=== PATIENT | male | born 1935 | race Caucasian/White ===

== ENCOUNTER 2020-03-26 09:24 | Inpatient (IN) | payer MEDICARE, OTHER, SELFPAY ==
[2020-03-26] VITALS (15 sets, daily range): BP systolic 127–151; BP diastolic 67–94; PULSE 72–107; RESP 16–25; TEMP 35.2–36.5; O2SAT 89–100
--- NOTE | ~2020-03-26 | CT_ITS ---
EXAMINATION: CTA chest PE protocol DATE: 03/27/2020 10:55 INDICATION: Shortness of breath. TECHNIQUE: Computed tomography angiography (CTA) of the chest was performed with 100 mL Omnipaque-350 intravenous contrast timed to evaluate the pulmonary arteries. Coronal maximum intensity projection 3D-reconstructions were created by the technologist. Automated exposure control and iterative reconst ruction technique were employed. The dose-length product was 243.82 mGy-cm. COMPARISON: Chest 2 views 03/26/2020 FINDINGS: There is moderate emphysema. There are peripheral reticular opacities in the lungs involvin g all lobes with honeycombing in the inferior lungs. Calcified bilateral lung nodules and calcified r ight hilar lymph nodes are consistent with old granulomatous disease. No pleural effusion. The heart size is normal. There are coronary artery calcifications. No pericardial effusion. There is no pulmon henok embolus. There are changes of cholecystectomy. There is thoracic kyphosis and moderate spondylosi s. There is severe cervical spondylosis. IMPRESSION: 1. No pulmonary embolus. Mild sensitivity is mildly decreased by motion artifact. 2. Moderate emphysema and chronic interstitial lung disease in a pattern of usual interstitial pneumo steve (UIP). Reviewed, dictated and finalized at location A. IMPRESSION: 1. No pulmonary embolus. Mild sensitivity is mildly decreased by motion artifac t. 2. Moderate emphysema and chronic interstitial lung disease in a pattern of usu al interstitial pneumonia (UIP).
--- NOTE | ~2020-03-26 | XR_ITS ---
EXAMINATION: XR chest 2V DATE: 03/26/2020 09:57 INDICATION: Shortness of breath. Dizziness. TECHNIQUE: Frontal and lateral views of the chest were obtained. COMPARISON: None. FINDINGS: There is mild scarring at the lung apices. The lungs are hyperexpanded with lucencies and a rchitectural distortion, consistent with emphysema. There is mild atelectasis versus scarring in the lower lung zones. No pleural effusion or pneumothorax. The heart size is normal. There are surgical c lips around the gastroesophageal junction and in the abdomen. IMPRESSION: 1. Mild atelectasis versus scarring in the lower lung zones and mild scarring at the lung apices. 2. Emphysema. Reviewed, dictated and finalized at location A. IMPRESSION: 1. Mild atelectasis versus scarring in the lower lung zones and mild scarring a t the lung apices. 2. Emphysema.
--- NOTE | 2020-03-26 09:27 | ECG_ITS ---
Measurements Intervals [place] Rate: 96 P: 57 DC: 157 QRS: 70 QRSD: 101 T: -21 QT: 341 QTc: 432 Interpretive Statements SINUS RHYTHM ST-T WAVE ABNORMALITY IN ANT/INF LEADS- CONSIDER ISCHEMIA BASELINE ARTIFACT- I, III, AVR, AVL, AVF, V1-V2 ABNORMAL ECG Electronically Signed On 03-26-2020 9:57:40 CDT by Virgilio Hanson D.O.
--- NOTE | 2020-03-26 09:33 | ED.SOB ---
HPI - SOB/Dyspnea General Chief Complaint: Shortness of Breath/Dyspnea Stated Complaint: sob, dizzy Time Seen by Provider: 03/26/20 09:26 History of Present Illness HPI Narrative: 84 yo male w/ h/o HTN presents c/o SOB. He says that he has been short of breath for quite some time. It has been getting progressively worse, although with no sudden change. He now has difficulty just getting around inside his home. He has no h/o COPD, although he did smoke for many years. No CP, fever, sick exposures. Related Data Home Medications Medication Instructions Recorded Confirmed amlodipine 5 mg PO DAILY 03/26/20 03/26/20 Allergies Allergy/AdvReac Type Severity Reaction Status Date / Time No Known Allergies Allergy Verified 03/26/20 09:39 Review of Systems Review of Systems: All systems reviewed & are unremarkable except as noted in HPI and below Constitutional: Constitutional: Denies fever(s) ENT: Denies dizziness Cardiovascular: Cardiovascular: Denies chest pain Respiratory: Respiratory: Reports cough and Reports dyspnea PMFSH Past Medical History Medical History COPD (chronic obstructive pulmonary disease) History of gastrectomy Due 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 He has an adopted daughter. She is a durable power health care attorney for healthcare. The patient tells me that he wants to be a DNR. He is also retired from [employer] and retired from the in 1975. Smoking status: Former smoker Tobacco type: cigarettes Second hand tobacco smoke exposure: No Alcohol intake: former Substance use: never Gender identity (if verbalized by the patient): Male Spiritual care concerns: No Exam Const: General: no acute distress and alert Orientation/consciousness: patient oriented x3 HENMT: Head: normal to inspection Neck: Neck: normal visual inspection and no lymphadenopathy Chest: Chest palpation & inspection: no tenderness Resp: Effort & Inspection: normal respiratory effort Auscultation: wheezes and diminished lung sounds Cardio: Jugular venous distension: no JVD Rate: regular rate Rhythm: regular rhythm Heart sounds: no murmurs GI: Inspection: non-distended GI Palp: Yes Soft to palpation and No Tenderness to palpation present (GI) Skin: General skin exam: normal color Neuro: General: patient oriented x3 and moves all extremities Speech: normal speech Extrem: General: no edema Psych: Appearance: well kempt Affect: normal affect Course Vital Signs Vital signs: Vital Signs Temperature 36.5 C 03/26/20 09:30 Pulse Rate 92 03/26/20 09:30 Respiratory Rate 25 H 03/26/20 09:30 Blood Pressure 151/94 H 03/26/20 09:30 Pulse Oximetry 89 L 03/26/20 09:30 Temperature 36.8 C 03/28/20 14:00 Pulse Rate 77 03/28/20 14:00 Respiratory Rate 20 03/28/20 14:00 Blood Pressure 121/65 03/28/20 14:00 Pulse Oximetry 93 03/28/20 15:30 MDM - SOB/Dyspnea Differential Diagnosis Differential diagnosis: Likely acute exacerbation of chronic obstructive airways disease, congestive heart failure and community acquired pneumonia Lab Data Attestation: I reviewed the patient's lab results. Result diagrams: 03/28/20 05:21 03/28/20 05:21 Labs: Lab Results 03/26/20
--- NOTE | 2020-03-26 09:42 | PC.NURSE ---
Pt placed on 2 L NC O2, sat from 89% on room air to 100%, titrated O2 via NC to 1 L.
--- NOTE | 2020-03-26 09:43 | PC.NURSE ---
Pt to XRAY via stretcher on tele monitor.
[2020-03-26 09:49] LABS: Basophils Absolute Auto 0.1 K/mm3 (0.0-0.1); Basophils Percent Auto 0.7 % (0.2-1.2); Eosinophils Absolute Auto 0.1 K/mm3 (0-0.3); Eosinophils Percent Auto 1.5 % (0-4.4); Hematocrit 38.2 % (42.0-52.0); Hemoglobin 12.2 g/dL (14.0-18.0); Immature Granulocyte Absolute 0.03 K/mm3 (0.00-0.031); Immature Granulocyte Percent A 0.4 % (0-0.5); Lymphocytes Absolute Auto 2.01 K/mm3 (0.9-3.2); Lymphocytes Percent Auto 23.7 % (18.3-44.2); Mean Corpuscular HGB Conc 31.9 g/dl (32-36); Mean Corpuscular Hemoglobin 26.5 pg (26-34); Mean Platelet Volume 8.9 fl (7.4-10.4); Monocytes Absolute Auto 0.8 K/mm3 (0.1-0.6); Monocytes Percent Auto 8.8 % (2.6-8.5); Neutrophils Absolute Auto 5.5 K/mm3 (1.3-6.7); Neutrophils Percent Auto 64.9 % (45.5-73.1); Platelet Count Result 343 k/mm3 (150-375); Red Cell Distribution Width 17.8 % (11.5-14.5); White Blood Count 8.5 K/mm3 (4.5-10.0)
[2020-03-26 10:00] LABS: Alanine Aminotransferase 15 U/L (4-50); Albumin Level 4.5 g/dL (3.5-5.1); Alkaline Phosphatase 86 U/L (38-126); Aspartate Amino Transferase 28 U/L (17-59); Bilirubin,Total 0.4 mg/dL (0.2-1.3); Blood Urea Nitrogen 28 mg/dL (9-20); Calcium 9.2 mg/dL (8.4-10.2); Carbon Dioxide 22 mmol/L (22-30); Chloride 104 mmol/L (98-107); Estimated CRCL calculation 56 ml/min; Estimated Glomerular Filt Rate > 60; Glucose 120 mg/dL (75-110); Potassium 4.4 mmol/L (3.4-5.0); Sodium 135 mmol/L (137-145)
[2020-03-26 10:09] LABS: INR 1.1; Prothrombin Time 13.6 Seconds (11.1-14.7)
[2020-03-26 10:10] LABS: Partial Thromboplastin Time 28.5 SECONDS (22.3-36.8)
[2020-03-26 10:14] LABS: NT Pro B Type Natriuretic Pept 2700 PG/ML (5-100); Troponin I < 0.012 ng/mL (0.000-0.034)
[2020-03-26 10:17] LABS: Base Excess ABG -3.9 mEq/l (+/-2.0); HCO3 ABG 18.9 mEq/l (22.0-26.0); Oxygen Saturation ABG 94.5 % (95.0-100.0); PCO2 ABG 27.9 mmHg (35.0-45.0); PO2 ABG 67.2 mmHg (80.0-100.0); Total Hemoglobin 12.5 g/dL (12.0-18.0); pH ABG 7.448 (7.350-7.450)
[2020-03-26 10:18] LABS: Alveolar/Arterial O2 Gradient 49.1 mmHg; Device ROOM AIR; Fractional Inspired Oxygen 21 %; Site Drawn LEFT BRACHIAL
[2020-03-26] MEDS: IPRATROPIUM BR 0.02% INH SOLN 0.5 MG/2.5 ML VIAL INHALATION ×3 (10:25→20:12)
[2020-03-26] MEDS: ALBUTEROL SULFATE NEB 2.5 MG/0.5 ML INH 5 MG INHALATION ×3 (10:26→20:12)
--- NOTE | 2020-03-26 10:34 | PC.NURSE ---
Pt taken off O2 (100% on 1 L NC), pt 100% on room air.
--- NOTE | 2020-03-26 18:24 | PM.IMHP ---
H&P: HPI History of Present Illness Chief complaint: COPD exacerbation Narrative: Ramírez Helm is a 84 year old male who has no prior history of having COPD or emphysema. The patient did smoke for many years. Patient stated that he has been short of breath for quite a while. I asked him to the elaborate on being short of breath for while. He said probably since last year. He said it is mostly with exertion. He stated when he walks approximately block he has to stop and recover. He said it takes him a short period of time to recover. He does not have any home oxygen. He does not have any fever chills or any cough. The patient does not use any inhalers and is only on blood pressure medication. Given nebulizer treatment in the emergency room. Mild atelectasis versus scarring in the lower lung zones and mild scarring at the lung apices. Emphysema. Date of service 03/26/2020 The patient lives home alone and has been reminiscing about being back in [place]. He has been having flashbacks. His neighbor is a nurse who recommended that the patient needed to be checked out. Review of Systems Review of Systems: All systems reviewed & are unremarkable except as noted in HPI and below Constitutional: Constitutional: Reports as per HPI and Reports no additional constitutional complaints Eyes: Eyes: Reports as per HPI and Reports no additional eye complaints ENT: Reports system reviewed and no additional complaints, except as documented and Reports Normal hearing present Cardiovascular: Cardiovascular: Reports no additional cardiovascular complaints Respiratory: Respiratory: Reports no additional respiratory complaints and Reports no additional respiratory complaints Gastrointestinal: Gastrointestinal: Reports as per HPI and Reports no additional gastrointestinal complaints Musculoskeletal: Musculoskeletal: Reports no additional musculoskeletal complaints Integumentary/Breasts: Skin/Breast: Reports system reviewed and no additional complaints, except as docu and Reports as per HPI Neurologic: Reports system reviewed and no additional complaints, except as documented, Reports as per HPI and Reports Normal hearing present Psychiatric: Psychiatric: Reports no additional psychiatric complaints and Reports as per HPI Endocrine: Endocrine: Reports no additional endocrine complaints Hematologic/Lymphatic: Hematologic/Lymphatic: Reports no additional hematologic/lymphatic complaints Allergic/Immunologic: Allergic/Immunologic: Reports no additional allergic/immunologic complaints [facility] Past Medical History Medical History (Updated 03/26/20 @ 18:28 by Wilma Todd NP) 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 He has an adopted daughter. She is a durable power defense attorney for healthcare. The patient tells me that he wants to be a DNR. He is also retired from [employer] and retired from the in 1975. Smoking status: Former smoker Tobacco type: cigarettes Second hand tobacco smoke exposure: No Alcohol intake: former Substance use: never Gender identity (if verbalized by the patient): Male Spiritual care concerns: No Meds Home Medications and Allergies Home Medications Medication Instructions Recorded Confirmed Type amlodipine 5 mg PO DAILY 03/26/20 03/26/20 History Allergies Allergy/AdvReac Type Severity Reaction Status Date / Time No Known Allergies Allergy Verified
[2020-03-26] MEDS: methylPREDNISolone SOD SUCC 125 MG VIAL 60 MG IV PUSH (22:08)
[2020-03-26] MEDS: AMLODIPINE BESYLATE 5 MG TABLET PO (22:08)
[2020-03-26] MEDS: MELATONIN 3 MG TABLET PO (22:08)
[2020-03-27] VITALS (17 sets, daily range): BP systolic 115–124; BP diastolic 53–75; PULSE 76–116; RESP 16–24; TEMP 36.4–37.1; O2SAT 90–99
--- NOTE | 2020-03-27 | ECHO_ITS ---
Patient Info Name: Ramírez Helm Age: 84 years : 1935 Gender: Male Ht: 73 in Wt: 151 lbs BSA: 1.87 m2 HR: 93 bpm BP: 143 / 76 mmHg Heart Rhythm: Sinus Rhythm Technical Quality: Good Exam Date: 03/27/2020 11:27 AM Exam Location: [facility] Pulmonary Exam Room: [place] Patient Status: Inpatient Admit Date: 03/27/2020 Staff Ordering Physician: Wilma Todd NP Hair Colorist: Cassie Bates RDCS Attending Provider: Chung Friedman PA-C Referring Physician: Peyton WALLACE; Exam Type: CA echo doppler color flow Study Info Indications - sob/rodriguez Complete two-dimensional, color flow and Doppler transthoracic echocardiogram is performed. Summary 1. Normal global left ventricular systolic function with no focal wall motion abnormalities. Grade 1 diastolic dysfunction is present. Ejection fraction 65-70%. Mild concentric LVH with normal size. Flattening of the interventricular septum during systole and diastole suggesting right ventricular volume and pressure overload. 2. Right ventricular chamber dimension is moderately enlarged with severe global hypokinesis.. 3. Left atrial chamber dimension is mildly enlarged. 4. There is mild to moderate tricuspid valve regurgitation. 5. Severe pulmonary hypertension, estimated pulmonary arterial systolic pressure is 90 mmHg. 6. Dilated inferior vena cava with <50% collapse upon inspiration consistent with significantly elevated right atrial pressure, 10 mmHg. An echo density was noted in the inferior vena cava which I suspect is artifactual although a mass cannot be completely excluded. 7. Normal sinus rhythm. Left Ventricle Left ventricular chamber dimension is normal. Left ventricular systolic function is normal, estimated at 65-70%. There is mildly increased left ventricular wall thickness. Left ventricular septal wall motion is normal. The left ventricular diastolic function is grade I diastolic dysfunction. Normal global left ventricular systolic function with no focal wall motion abnormalities. Grade 1 diastolic dysfunction is present. Ejection fraction 65-70%. Mild concentric LVH with normal size. Flattening of the interventricular septum during systole and diastole suggesting right ventricular volume and pressure overload. Right Ventricle Right ventricular chamber dimension is moderately enlarged with severe global hypokinesis.. Right ventricular systolic function is reduced. Left Atria Left atrial chamber dimension is mildly enlarged. Right Atria Right atrial chamber dimension is normal. Aortic Valve The aortic valve is trileaflet. There is no aortic valve sclerosis. There is no aortic valve stenosis. There is no aortic valve regurgitation. Pulmonic Valve The pulmonic valve is normal. There is no pulmonic valve stenosis. There is trace pulmonic regurgitation. Mitral Valve The mitral valve has normal leaflets. There is no mitral valve stenosis. There is trace mitral valve regurgitation. Tricuspid Valve The tricuspid valve leaflets are normal. There is no significant tricuspid valve stenosis. There is mild to moderate tricuspid valve regurgitation. Severe pulmonary hypertension, estimated pulmonary arterial systolic pressure is 90 mmHg. Pericardium/Pleural The pericardium appears normal. There is no pericardial effusion. Inferior Vena Cava Dilated inferior vena cava with <50% collapse upon inspiration consistent with significantly elevated right atrial pressure, 10 mmHg. An echo density
[2020-03-27] MEDS: IPRATROPIUM BR 0.02% INH SOLN 0.5 MG/2.5 ML VIAL INHALATION ×4 (02:02→19:42)
[2020-03-27] MEDS: ALBUTEROL SULFATE NEB 2.5 MG/0.5 ML INH 5 MG INHALATION ×4 (02:02→19:42)
[2020-03-27] MEDS: methylPREDNISolone SOD SUCC 125 MG VIAL 60 MG IV PUSH ×2 (05:41→21:36)
[2020-03-27 06:30] LABS: Albumin Level 4.4 g/dL (3.5-5.1); Alkaline Phosphatase 80 U/L (38-126); Aspartate Amino Transferase 26 U/L (17-59); Bilirubin,Total 0.4 mg/dL (0.2-1.3); Blood Urea Nitrogen 20 mg/dL (9-20); Calcium 9.4 mg/dL (8.4-10.2); Carbon Dioxide 21 mmol/L (22-30); Chloride 103 mmol/L (98-107); Estimated CRCL calculation 59 ml/min; Estimated Glomerular Filt Rate > 60; Glucose 175 mg/dL (75-110); Potassium 4.2 mmol/L (3.4-5.0); Sodium 136 mmol/L (137-145)
[2020-03-27 06:36] LABS: Alanine Aminotransferase 20 U/L (4-50)
[2020-03-27 07:16] LABS: Thyroid Stimulating Hormone Reflex 0.296 uIU/mL (0.465-4.68)
[2020-03-27] MEDS: AMLODIPINE BESYLATE 5 MG TABLET PO (08:49)
[2020-03-27 08:57] LABS: Free T4 Free Thyroxine Reflex 1.28 ng/dL (0.78-2.19)
[2020-03-27 10:08] LABS: Total Triiodothyronine (T3) 2.25 NG/ML (0.97-1.69)
--- NOTE | 2020-03-27 10:40 | PM.IMPN ---
Progress Note: A&P Assessment and Plan (1) Emphysema lung: Code(s): J43.9 - Emphysema, unspecified Status: Acute Assessment and Plan: Patient has never been diagnosed in the past. Noted on CXR during this stay. He has significant smoking history; former smoker. Clinically improved today. Breathing on RA Continue with nebulizer treatments Taper IV solumedrol frequency today; consider prednisone burst at discharge Will need follow up with PCP to potentially be referred to [facility]; he will likely need PFT for further evaluation PE less likely but will continue with CTA chest to rule out PE Possibly cardiac component as well; will proceed with Echo today as well Monitor overnight (2) PTSD (post-traumatic stress disorder): Code(s): F43.10 - Post-traumatic stress disorder, unspecified Status: Chronic Assessment and Plan: He is not currently on any medication at this time and does not want to be on any at this time. Follow up with PCP (3) HTN (hypertension) with goal to be determined: Code(s): I10 - Essential (primary) hypertension Status: Chronic Assessment and Plan: BP 120s sys this morning Continue with home amlodipine Monitor (4) Cataract: Code(s): H26.9 - Unspecified cataract Status: Acute Assessment and Plan: The patient is to have the left eye cataract removed sometime this month. Subjective Date/time seen: 03/27/20 10:40 Interval history: Patient is a 84 yo M with history of HTN, PTSD, and signficant tobacco use who is here for evaluation of SOB that has progressively worsened over the past months/year. Patient states he feels fine today. He thinks his breathing has improved. He is primarily SOB when exerting himself. He has no other complaints at the moment. Denies f/c/s, headaches, dizziness, lightheadedness, cp/palpitations, n/v/d/c, abd pain, changes in BMs, dysuria, hematuria, cloudy urine, calf pain/swelling. Review of Systems Review of Systems: All systems reviewed & are unremarkable except as noted in HPI and below Exam Narrative: Exam Narrative: Patient resting comfortably in bed, sitting up at time of visit Const: General: cooperative, comfortable, no acute distress, well developed, alert, awake and Physically active Nutritional Appearance: thin Orientation/consciousness: patient oriented x3 HENMT: Head: normocephalic and atraumatic General nose exam: Normal nares present Face and sinus: face symmetric Mouth: Yes moist mucous membranes Eyes: General: appearance normal, both eyes and all related structures EOM: EOMs intact bilaterally Neck: Neck: trachea midline and supple Resp: Effort & Inspection: normal respiratory effort Auscultation: clear to auscultation bilaterally and diminished lung sounds diffuse Cardio: Rate: tachycardic Rhythm: regular rhythm Heart sounds: no murmurs GI: Inspection: non-distended GI Palp: No abdominal tenderness and Yes Soft to palpation Auscultation: normal bowel sounds Skin: General skin exam: normal color and no rashes or lesions noted Neuro: General: patient oriented x3, moves all extremities and no focal motor deficits Speech: normal speech Extrem: Right lower extremity: no edema Left lower extremity: no edema Other: NTTP b/l calves Psych: Mental Status: mental status grossly normal Affect: normal affect Objective Data Vital Signs Vital Signs: Last Vital Signs Temp 97.5 F L 03/27/20 06:00 Pulse 97 03/27/20 08:10 Resp 20 03/27/20 08:10 BP 124/75 03/27/20 06:00 Pulse Ox 98 03/27/20 07:59 Intake/Output Intake/Output: Intake & Output 03/24/20 03/25/20 03/26/20 03/27/20 23:59 23:59 23:59 23:59 Intake Total 200 240 Output Total 200 650 Balance 0 -410 Meds/Results Medications: Ac
[2020-03-27] MEDS: MELATONIN 3 MG TABLET PO (21:31)
[2020-03-28] VITALS (16 sets, daily range): BP systolic 113–121; BP diastolic 63–65; PULSE 75–106; RESP 18–20; TEMP 36.7–36.8; O2SAT 24–97
[2020-03-28] MEDS: ALBUTEROL SULFATE NEB 2.5 MG/0.5 ML INH 5 MG INHALATION ×3 (02:34→13:28)
[2020-03-28] MEDS: IPRATROPIUM BR 0.02% INH SOLN 0.5 MG/2.5 ML VIAL INHALATION ×3 (02:34→13:28)
[2020-03-28 05:34] LABS: Hematocrit 35.2 % (42.0-52.0); Hemoglobin 11.3 g/dL (14.0-18.0); Mean Corpuscular HGB Conc 32.1 g/dl (32-36); Mean Corpuscular Hemoglobin 26.7 pg (26-34); Mean Corpuscular Volume 83.2 fl (80-100); Platelet Count Result 311 k/mm3 (150-375); Red Blood Count 4.23 M/mm3 (4.6-6.20); Red Cell Distribution Width 17.8 % (11.5-14.5); White Blood Count 14.5 K/mm3 (4.5-10.0)
[2020-03-28 05:51] LABS: Blood Urea Nitrogen 31 mg/dL (9-20); Calcium 9.5 mg/dL (8.4-10.2); Carbon Dioxide 22 mmol/L (22-30); Chloride 103 mmol/L (98-107); Estimated CRCL calculation 53 ml/min; Estimated Glomerular Filt Rate > 60; Glucose 153 mg/dL (75-110); Magnesium 2.2 mg/dL (1.6-2.3); Potassium 4.7 mmol/L (3.4-5.0); Sodium 136 mmol/L (137-145)
[2020-03-28] MEDS: predniSONE 20 MG TABLET 40 MG PO (09:08)
--- NOTE | 2020-03-28 14:22 | PM.IMPN ---
Progress Note: A&P Assessment and Plan (1) Severe pulmonary arterial systolic hypertension: Code(s): I27.21 - Secondary pulmonary arterial hypertension Status: Acute Assessment and Plan: Noted on Echo during stay; 90 mmHg pressure. CTA chest showed no PE but showed moderate emphysema and chronic interstitial lung disease in a pattern of usual interstitial pneumonia (UIP). Discussed with Dr. Humphries; appreciate recommendations Will await further rec from Dr. Humphries Patient currently asymptomatic; on RA Monitor Will need further f/u as an outpatient, as well (2) Emphysema lung: Code(s): J43.9 - Emphysema, unspecified Status: Acute Assessment and Plan: Patient has never been diagnosed in the past. Noted on CXR and CTA chest during this stay. He has significant smoking history; former smoker. Clinically improved again today. Breathing on RA. Lung exam unremarkable other than decreased breathe sounds Continue with nebulizer treatments Switched from IV Solumedrol to PO prednisone 40 mg; likely discharge on burst Dr. Humphries consulted and appreciate recommendations; he will likely need PFT for further evaluation (3) PTSD (post-traumatic stress disorder): Code(s): F43.10 - Post-traumatic stress disorder, unspecified Status: Chronic Assessment and Plan: He is not currently on any medication at this time and does not want to be on any at this time. Follow up with PCP (4) HTN (hypertension) with goal to be determined: Code(s): I10 - Essential (primary) hypertension Status: Chronic Assessment and Plan: BP 110s sys this morning Continue with home amlodipine Monitor (5) Cataract: Code(s): H26.9 - Unspecified cataract Status: Acute Assessment and Plan: The patient is to have the left eye cataract removed sometime this month. Subjective Date/time seen: 03/28/20 14:22 Interval history: Patient is a 84 yo M with history of HTN, PTSD, and signficant tobacco use who is here for evaluation of SOB that has progressively worsened over the past months/year. Patient states he feels fine today. He thinks his breathing has improved. He is primarily SOB when exerting himself. He has no other complaints at the moment. Denies f/c/s, headaches, dizziness, lightheadedness, cp/palpitations, n/v/d/c, abd pain, changes in BMs, dysuria, hematuria, cloudy urine, calf pain/swelling. Review of Systems Review of Systems: All systems reviewed & are unremarkable except as noted in HPI and below Exam Narrative: Exam Narrative: Patient resting comfortably in bed, sitting up at time of visit Const: General: cooperative, comfortable, no acute distress, well developed, alert, awake and Physically active Nutritional Appearance: thin Orientation/consciousness: patient oriented x3 HENMT: Head: normocephalic and atraumatic General nose exam: Normal nares present Face and sinus: face symmetric Mouth: Yes moist mucous membranes Eyes: General: appearance normal, both eyes and all related structures EOM: EOMs intact bilaterally Neck: Neck: trachea midline and supple Resp: Effort & Inspection: normal respiratory effort Auscultation: clear to auscultation bilaterally and diminished lung sounds diffuse Cardio: Rate: tachycardic Rhythm: regular rhythm Heart sounds: no murmurs GI: Inspection: non-distended Auscultation: normal bowel sounds Skin: General skin exam: normal color and no rashes or lesions noted Neuro: General: patient oriented x3, moves all extremities and no focal motor deficits Speech: normal speech Extrem: Right lower extremity: no edema Left lower extremity: no edema Other: NTTP b/l calves Psych: Mental Status: mental status grossly normal Affect: normal
--- NOTE | 2020-03-28 15:06 | PM.PNPUL ---
Progress Note: A&P Assessment and Plan (1) Severe pulmonary arterial systolic hypertension: Code(s): I27.21 - Secondary pulmonary arterial hypertension Status: Acute (2) COPD (chronic obstructive pulmonary disease): Qualifiers: COPD type: COPD with acute exacerbation Qualified Code(s): J44.1 - Chronic obstructive pulmonary disease with (acute) exacerbation Code(s): J44.9 - Chronic obstructive pulmonary disease, unspecified Status: Acute (3) Shortness of breath on exertion: Code(s): R06.02 - Shortness of breath Status: Acute (4) History of tobacco abuse: Code(s): Z87.891 - Personal history of nicotine dependence Status: Acute Subjective Date/time seen: 03/28/20 15:06 NEW: Ramírez Helm is an 84 yo man with no documented history of lung disease. His a a , lost his last year to breast cancer. He was a heavy smoker, less than a pack per day until Aug 2014 when he retired, quit drinking and smoking. Review of Systems Constitutional: Comments: no fever Exam Const: General: no acute distress Eyes: General: appearance normal, both eyes and all related structures Other: decreased vision, awaiting cataract surgery next month Neck: Neck: supple Resp: Auscultation: rales bilateral (lateral lower lung greene) Cardio: Rate: regular rate Rhythm: regular rhythm GI: Auscultation: normal bowel sounds Skin: General skin exam: normal color Neuro: Speech: normal speech Extrem: General: normal to inspection Psych: Mental Status: mental status grossly normal Objective Data Vital Signs Vital Signs: Vital Signs - 24 hr 03/27/20 16:00 03/27/20 19:40 03/27/20 19:44 Temperature Pulse Rate 101 H 84 82 Respiratory Rate 20 20 Blood Pressure Pulse Oximetry 94 03/27/20 20:00 03/27/20 22:00 03/28/20 00:00 Temperature 37.1 C Pulse Rate 105 H 99 93 Respiratory Rate 16 Blood Pressure 115/53 L Pulse Oximetry 91 03/28/20 02:30 03/28/20 04:00 03/28/20 06:00 Temperature 36.7 C Pulse Rate 79 106 H 88 Respiratory Rate 20 18 Blood Pressure 113/63 Pulse Oximetry 80 L 97 03/28/20 07:50 03/28/20 08:00 03/28/20 08:02 Temperature Pulse Rate 76 97 80 Respiratory Rate 20 20 Blood Pressure Pulse Oximetry 93 03/28/20 12:00 03/28/20 13:20 03/28/20 13:29 Temperature Pulse Rate 95 75 78 Respiratory Rate 20 20 Blood Pressure Pulse Oximetry Intake/Output Intake/Output: Intake & Output 03/25/20 03/26/20 03/27/20 03/28/20 23:59 23:59 23:59 23:59 Intake Total 200 970 120 Output Total 200 950 500 Balance 0 20 -380 Meds/Results Medications: Active Medications Generic Name Dose Route Start Last Admin Trade Name Freq PRN Reason Stop Dose Admin Albuterol 5 mg 03/26/20 14:00 03/28/20 13:28 Albuterol Sulf Neb 2.5mg/0.5ml INHALATION 5 mg Q6HRT ESTER Administration Amlodipine Besylate 5 mg 03/26/20 18:35 03/27/20 08:49 Norvasc PO 5 mg DAILY ESTER Administration Ipratropium Wasta 0.5 mg 03/26/20 14:00 03/28/20 13:28 Atrovent Neb INHALATION 0.5 mg Q6HRT ESTER Administration Melatonin 3 mg 03/26/20 21:55 03/27/20 21:31 Melatonin PO 3 mg HS ESTER Administration Prednisone 40 mg 03/28/20 08:00 03/28/20 09:08 Prednisone PO 40 mg DAILY@0800 ESTER Administration Radiology Results: ITS Impressions Chest X-Ray 03/26/20 10:00 IMPRESSION: 1. Mild atelectasis versus scarring in the lower lung zones and mild scarring at the lung apices. 2. Emphysema. Chest CTA 03/27/20 11:41 IMPRESSION: 1. No pulmonary embolus. Mild sensitivity is mildly decreased by motion artifact. 2. Moderate emphysema and chronic interstitial lung disease in a pattern of usual interstitial pneumonia (UIP). Labs Labs: Laboratory Results - last 24 hr 03/28/20 03/28/20 05:21 05:21 WBC 14.5 H RBC 4.23 L Hgb 11.3 L Hct 35.2 L MCV 83.2 M
--- NOTE | 2020-03-28 15:20 | PM.DS ---
DS: Admitting Diagnosis Admitting Diagnosis Admitting Diagnosis: Emphysema, unspecified DS: Discharge Diagnosis Discharge Diagnosis (1) Severe pulmonary arterial systolic hypertension: Code(s): I27.21 - Secondary pulmonary arterial hypertension Status: Acute Assessment and Plan: Noted on Echo during stay; 90 mmHg pressure. CTA chest showed no PE but showed moderate emphysema and chronic interstitial lung disease in a pattern of usual interstitial pneumonia (UIP). Discussed with Dr. Humphries; appreciate recommendations Will likely send home with Spiriva and Symbicort Will need further f/u as an outpatient, as well (2) Emphysema lung: Code(s): J43.9 - Emphysema, unspecified Status: Acute Assessment and Plan: Patient has never been diagnosed in the past. Noted on CXR and CTA chest during this stay. He has significant smoking history; former smoker. Clinically improved again today. Breathing on RA. Lung exam unremarkable other than decreased breathe sounds Continue with nebulizer treatments Switched from IV Solumedrol to PO prednisone 40 mg; likely discharge on burst Dr. Humphries consulted and appreciate recommendations; he will likely need PFT for further evaluation Home O2 eval; recommend 2L O2 with activity - no O2 at rest (3) PTSD (post-traumatic stress disorder): Code(s): F43.10 - Post-traumatic stress disorder, unspecified Status: Chronic Assessment and Plan: He is not currently on any medication at this time and does not want to be on any at this time. Follow up with PCP (4) HTN (hypertension) with goal to be determined: Code(s): I10 - Essential (primary) hypertension Status: Chronic Assessment and Plan: BP 110s sys this morning Continue with home amlodipine (5) Cataract: Code(s): H26.9 - Unspecified cataract Status: Acute Assessment and Plan: The patient is to have the left eye cataract removed sometime this month. DS: Summary Hospital Course Reason for hospitalization: Severe SOB; Emphysema/COPD exacerbation, severe pulmonary hypertension Hospital Course: Patient is a 84 yo M with history of hypertension, significant smoking history, and no prior history of lung issues who presented to the ER on 03/26 with complaints of worsening SOB to a point where if he walked a block, he would have to stop to recover. While in the ER, CXR showed emphysema and mild atelectasis versus scarring in lower lung zones and scarring in lung apices. Patient admitted under this setting. Please see H&P for further details. Presenting VS: Temp Pulse Resp BP Pulse Ox 97.7 F 92 25 H 151/94 H 89 L RA 03/26/20 09:30 03/26/20 09:30 03/26/20 09:30 03/26/20 09:30 03/26/20 09:30 Presenting Pertinent labs: ABG on RA showed pH of 7.448, pCO2 of 27.9, pO2 of 67.2, HCO3 of 18.9, O2 sat of 94.5%. BNP 2700. CBC, coag, ABG, and chemistry otherwise unremarkable Micro: none Imaging: Chest X-Ray 03/26/20 10:00 IMPRESSION: 1. Mild atelectasis versus scarring in the lower lung zones and mild scarring at the lung apices. 2. Emphysema. Chest CTA 03/27/20 11:41 IMPRESSION: 1. No pulmonary embolus. Mild sensitivity is mildly decreased by motion artifact. 2. Moderate emphysema and chronic interstitial lung disease in a pattern of usual interstitial pneumonia (UIP). Echo 03/27/20 Summary 1. Normal global left ventricular systolic function with no focal wall motion abnormalities. Grade 1 diastolic dysfunction is present. Ejection fraction 65-70%. Mild concentric LVH with normal size. Flattening of the interventricular septum during systole and diastole suggesting right ventricular volume and pressure overload. 2. Right ventricular chamber dimension is moderately enlarged with
--- NOTE | 2020-03-28 15:39 | HOMEO2EVAL ---
Home Oxygen Evaluation RC: Home Oxygen (O2) Evaluation Start: 03/28/20 15:07 Freq: ONCE Status: Active Protocol: RPE Activity Type Activity Date Activity User E-Sign Co-Sign Detail Recorded Client Recorded Date Recorded By Document 03/28/20 15:15 [email or web address] [email or web address] 03/28/20 15:39 ARIK Document 03/28/20 15:18 [email or web address] [email or web address] 03/28/20 15:39 ARIK Document 03/28/20 15:20 [email or web address] [email or web address] 03/28/20 15:39 ARIK Document 03/28/20 15:23 [email or web address] [email or web address] 03/28/20 15:39 ARIK Document 03/28/20 15:30 [email or web address] [email or web address] 03/28/20 15:39 ARIK 03/28/20 03/28/20 03/28/20 15:15 15:18 15:20 Home O2 Evaluation Test Phase Resting Exercise Exercise Oxygen Delivery Room Air Room Air Nasal Cannula Oxygen Flow Rate (L/min) 1 Pulse Oximetry (90-100 %) 92 86 L 87 L Home Oxygen Evaluation Comments Treatment Charges O2 Evaluation 03/28/20 03/28/20 15:23 15:30 Home O2 Evaluation Test Phase Exercise Resting Oxygen Delivery Nasal Cannula Room Air Oxygen Flow Rate (L/min) 2 Pulse Oximetry (90-100 %) 90 93 Home Oxygen Evaluation Comments PT REQUIRES 2L WITH ACTIVITY/ EXERTION Treatment Charges
[2020-03-28] MEDS: AMLODIPINE BESYLATE 5 MG TABLET PO (16:16)
--- NOTE | 2020-03-28 17:52 | PC.NURSE ---
Pt has been discharged from this unit. Pt had IV removed, tele discontinued, and discharge paperwork reviewed. Opportunity for questions was provided and pt exhibited good understanding of discharge instructions. Pt was wheeled to the front of the building by staff and assisted into friends car.
--- NOTE | 2020-04-22 16:46 | CONS_ITS ---
DATE OF CONSULTATION: 03/28/2020 REASON FOR THE CONSULTATION: Dr. Hein consulted me to see the patient for COPD. HISTORY: This patient is an 84-year-old man with a remote history of smoking with increasing shortness of breath. His shortness of breath is primarily with exertion. He was last year, with breast cancer. He smoked less than a pack per day until August of 2014 when he retired, quit drinking and smoking. Because he was increasingly short of breath, his neighbor who is a nurse told him to come to the emergency department to be evaluated. His chest x-ray showed mild atelectasis in the bases with scarring at the apices and emphysema. He was admitted with untreated COPD and has benefited by being on bronchodilator therapy. He does not have recurrent lung infections. He is not exposed to secondhand smoke. ALLERGIES: NONE LISTED. HOME MEDICATIONS: Amlodipine 5 mg a day. 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 PAST SURGICAL HISTORY: Gastric surgery. SOCIAL HISTORY: with dying in January. Adopted daughter. He retired from working at [employer] and retire from the 1975. Smoked until 2013, a half pack per day. No current alcohol since 2013. FAMILY HISTORY: Mother and sibling had cancer. REVIEW OF SYSTEMS: In general, weight has been stable. No leg swelling. No frequent respiratory infections. The remainder of the 14-point review of systems is negative. PHYSICAL EXAMINATION: VITAL SIGNS: Height 1.85 m, weight 68.8 kg, pulse is 84, respirations 20, temperature 37.1, blood pressure 115/53, saturation 91% on room air. GENERAL: This is a pleasant 84-year-old man, in no acute distress. HEENT: Pupils are equal, face symmetric. Moist oral membranes. No oral lesions. No sinus tenderness. Pupils are equal and reactive to light. NECK: Supple without lymphadenopathy. RESPIRATORY SYSTEM: A few crackles in the bases. No wheezes. CARDIOVASCULAR: Regular S1, S2 without a murmur or gallop. GASTROINTESTINAL: Active bowel sounds. EXTREMITIES: No peripheral edema, clubbing, or cyanosis. PSYCHOLOGICAL: Normal mental status, affect and mood. LABORATORY DATA: Chest CT on March 27 showed no pulmonary embolus. Moderate emphysema and some chronic interstitial lung disease in a pattern suggestive of UIP. This includes peripheral reticular opacities in all the lungs with honeycombing in the inferior lungs. Calcified bilateral lung nodules and a calcified right hilar lymph node. No pleural effusion. ASSESSMENT: 1. Emphysema with increasing symptoms, not on any medication at home. Continue bronchodilator therapy. 2. New finding of interstitial lung disease with honeycombing on the chest CT. The patient can be followed up in the office for this. 3. Remote history of tobacco none since 2013. 4. Hypertension, currently controlled. Thank you for the opportunity to see this pleasant patient. He will be closely followed in the outpatient setting. MYLES PANIAGUA M.D. WAFER [employer]BRADING MACHINE TENDER WAFER ABRADING MACHINE TENDER D I MT: Mariela
== END 2020-03-28 17:30 | disposition home or self-care (01) | DRG 192 ==
LOC: ANHED 12:02 → ANH3MEDSUR 12:24
PROVIDERS: Nurse Practitioner; Physician Assistant; Admitting Provider Hospitalist; Emergency Provider Emergency Medicine; PCP Family Medicine; Visit Provider Internal Medicine
DX: J43.9 Emphysema, unspecified (principal); I27.20 Pulmonary hypertension, unspecified; I10 Essential (primary) hypertension; H26.8 Other specified cataract; F43.12 Post-traumatic stress disorder, chronic; Z66 Do not resuscitate; Z87.891 Personal history of nicotine dependence
CPT/HCPCS: 36415; 36600; 71046; 71275; 80048; 80053; 82805; 83735; 83880; 84439; 84443; 84480; 84484; 85025; 85027; 85610; 85730; 93005; 93306; 94618; 94640; 96374; 96376; 99285; A9270; G0378; J2930; J7512; Q9967